=== PATIENT | male | born 1970 | race Caucasian/White ===

== ENCOUNTER → 2019-11-14 | Outpatient (CLI) | payer BC, OTHER | LOC: ULTRA 16:00 | PROVIDERS: ATTEND Internal Medicine | DX: M79.604 Pain in right leg (principal); M79.605 Pain in left leg ==

== ENCOUNTER → 2019-11-15 | Outpatient (CLI) | payer BC, OTHER | LOC: NUC 08:39 → RAD 08:39 | PROVIDERS: ATTEND Internal Medicine | DX: J90 Pleural effusion, not elsewhere classified (principal); R07.89 Other chest pain; R06.02 Shortness of breath ==